=== PATIENT | male | born 1985 | race African-American/Black ===

== ENCOUNTER 2019-05-16 14:40 | Emergency (ER) | payer OTHER ==
[2019-05-16] MEDS ORDERED: Lidocaine 1% MPF 5 ML VIAL IM ONE (15:17)
[2019-05-16] MEDS ORDERED: cefTRIAXone VIAL(*) 250 MG VIAL IM ONE (15:17)
[2019-05-16 15:52] VITALS: BP 125/64
[2019-05-16 16:37] LABS: HIV 4th Generation Nonreactive (Nonreactive)
[2019-05-18 11:51] LABS: Chlamydia trachomatis NAA Positive (Negative); Neisseria gonorrhoeae (GC) NAA Negative (Negative)
== END 2019-05-16 15:52 | disposition home or self-care (01) ==
LOC: ED 14:40
DX: Z20.2 Contact with and (suspected) exposure to infections with a predominantly sexual mode of transmission (principal)